=== PATIENT | male | born 1995 | race Hispanic/Latino ===

== ENCOUNTER → 2022-12-26 | Emergency (ER) | payer OTHER ==
[~2022-12-26] VITALS: Ht 180.3 cm; Wt 105.7 kg
[2022-12-26 14:13] VITALS: BP 124/87; PULSE 88; RESP 16
== END ==
LOC: EDH 14:11
DX: R68.83 Chills (without fever) (principal); Z53.21 Procedure and treatment not carried out due to patient leaving prior to being seen by health care provider
CPT/HCPCS: 99281